=== PATIENT | female | born 1985 | race Caucasian/White ===

== ENCOUNTER → 2023-06-12 08:00 | Outpatient (BNV) | payer OTHER, SELFPAY | PROVIDERS: Visit Provider Psychiatry & Neurology Psychiatry | DX: F31.81 Bipolar II disorder (principal); F63.89 Other impulse disorders; F10.90 Alcohol use, unspecified, uncomplicated | CPT/HCPCS: 99204 ==

== ENCOUNTER 2023-06-21 08:15 | Outpatient (RCR) | payer OTHER, SELFPAY ==
[2023-06-12 12:54] VITALS: BMI 44.8
[2023-06-12 14:09] VITALS: BP 160/88; PULSE 80
--- NOTE | 2023-06-12 14:33 | PC.ADMIT ---
Josue is a 37 year old female who was referred to [facility] by her therapist d/t increased sxs of depression, anxiety, and anger. Regarding SI patient stated, Every day I have suicidal thoughts since age 12 . Denied any intent or plans to kill herself. She reports She stated she is drinking ETOH to cope. She reports she started drinking ETOH at age 13. She reports drinking alcohol nips 2 nips before work, 1-2 nips at lunch, and at home 1-6 nips. Was drinking daily until last Monday. Stated she drank twice since last Monday. Denied any sxs of withdrawal. No tremors, no diaphoresis. BP elevated 160/88 P 80 however patient reports dx of HTN and has not been compliant with Metoprolol. I called the pharmacy and a refill of the medication will be ready for p/u at 0800 06/13/23. Patient is aware. Patient stated, I didn't take my medication when younger because I wanted to drink. I am out of work on a leave of absence to do this . 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 Patient is alert and oriented x4. Calm and cooperative. Presented with depressed mood and affect. Patient given a copy of her safety plan and I reviewed this plan with her. Medications reconciled with patient and patient's pharmacy. Has not been taking medications as prescribed. Medication education provided.
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
[2023-06-15 11:42] VITALS: BP 130/92; PULSE 68
--- NOTE | 2023-06-15 18:17 | HO.PHP ---
Clients case was reviewed and opened today in treatment team.
--- NOTE | 2023-06-26 16:54 | HO.PHP ---
[facility] staff member spoke with Josue around discharging due to not being able to attend treatment due to illness. [facility] staff completed the PHQ-9 and provided resources for an eating disorder clinic. [facility] staff encouraged Josue to contact [facility] if she needs the support in the future. Josue was receptive.
== END 2023-06-21 23:59 | disposition home or self-care (01) ==
LOC: HO.PHPA 08:15
PROVIDERS: Visit Provider Psychiatry & Neurology Psychiatry
DX: F31.81 Bipolar II disorder (principal); F63.89 Other impulse disorders; F10.90 Alcohol use, unspecified, uncomplicated
CPT/HCPCS: 90791; 90853